=== PATIENT | male | born 1960 | race American Indian/Alaskan Native ===

== ENCOUNTER 2017-11-07 13:52 | Emergency (ER) | payer OTHER ==
[2017-11-07 14:15] VITALS: RESP 18; TEMP 98.4
--- NOTE | 2017-11-07 14:39 | ED PDOC ---
Arrival/HPI - General Chief Complaint: Medical Clearance Time Seen by Provider: 11/07/17 14:12 Historian: Patient - History of Present Illness Narrative History of Present Illness (Text): 11/07/17 14:33 A 57 year old male brought into the emergency department by EMS for possible carbon monoxide poisoning. Patient reports the CO monitor went off early this morning. He ignored it believing it was just a battery malfunction. Patient later smelt gas and the fire department was called. They instructed the patient to evacuate the building and come in to the emergency room for further evaluation. Patient denies any pain or discomfort at this time. Patient denies any fever, chills, nausea, vomiting, abdominal pain, chest pain, shortness of breath, headache, dizziness or any other complaints. Time/Duration: Prior to Arrival Context: Home Past Medical History - Provider Review Nursing Documentation Reviewed: Yes - Infectious Disease Hx of Infectious Diseases: None - Psychiatric Hx Substance Use: No - Anesthesia Hx Anesthesia: No Family/Social History - Physician Review Nursing Documentation Reviewed: Yes Family/Social History: No Known Family HX Smoking Status: Never Smoked Hx Alcohol Use: Yes Frequency of alcohol use: Socially Hx Substance Use: No Allergies/Home Meds Allergies/Adverse Reactions: Allergies No Known Allergies Allergy (Verified 11/07/17 14:02) Home Medications: Home Meds Medication Instructions Recorded Confirmed No Known Home Med 11/07/17 11/07/17 Review of Systems - Physician Review All systems were reviewed & negative as marked: Yes - Review of Systems Constitutional: Normal. absent: Fevers, Night Sweats Respiratory: absent: Normal, SOB Cardiovascular: Normal. absent: Chest Pain Gastrointestinal: Normal. absent: Abdominal Pain, Nausea, Vomiting Neurological: Normal. absent: Headache, Dizziness Physical Exam Vital Signs Reviewed: Yes Vital Signs Temp Pulse Resp BP Pulse Ox 11/07/17 14:56 88 18 176/98 H 97 11/07/17 14:09 98.4 F 109 H 18 178/115 H 98 Temperature: Afebrile Blood Pressure: Hypertensive Pulse: Tachycardic Respiratory Rate: Normal Appearance: Positive for: Well-Appearing, Non-Toxic, Comfortable Pain Distress: None Mental Status: Positive for: Alert and Oriented X 3 - Systems Exam Head: Present: Atraumatic, Normocephalic Pupils: Present: PERRL Extroacular Muscles: Present: EOMI Conjunctiva: Present: Normal Mouth: Present: Moist Mucous Membranes Neck: Present: Normal Range of Motion Respiratory/Chest: Present: Clear to Auscultation, Good Air Exchange. No: Respiratory Distress, Accessory Muscle Use Cardiovascular: Present: Regular Rate and Rhythm, Normal S1, S2. No: Murmurs Abdomen: Present: Normal Bowel Sounds. No: Tenderness, Distention, Peritoneal Signs Back: Present: Normal Inspection Upper Extremity: Present: Normal Inspection. No: Cyanosis, Edema Lower Extremity: Present: Normal Inspection. No: Edema Neurological: Present: GCS=15, CN II-XII Intact, Speech Normal (Patient is speaking in full sentences without any difficulty) Skin: Present: Warm, Dry, Normal Color. No: Rashes Psychiatric: Present: Alert, Oriented x 3, Normal Insight, Normal Concentration Medical Decision Making ED Course and Treatment: 11/07/17 14:33 Impression: A 57 year old male with possible CO poisoning. Patient denies any complaints at this time. Plan: -- VBG -- Reassess and disposition Progress Notes: Patient reports he has a place to stay in until his apartment is cleared by the fire department. 11/07/17 15:20 On re-evaluation, patient is comfortable. He continues to deny any complaints. Patient is acting and speaking normally. - Lab Interpretations Lab Results: Lab Results 11/07/17 14:45: pO2 62 H, ABG Carboxyhemoglobin 12.4 H, POC ABG HHb (Measured) 3.4, ABG Methemoglobin 1.2, VBG pH 7.42, VBG pCO2 48.0, VBG HCO3 31.1 H, VBG O2 Sat (Calc) 96.1 H, VBG Base Excess 5.4 H, VBG Hgb O2 Saturation 83.0 L, Hemoglobin 15.3 I have reviewed the lab results: Yes - Scribe Statement The provider has reviewed the documentation as recorded by the Codyibbonnie Roa Provider Scribe Attestation: All medical record entries made by the Scribe were at my direction and personally dictated by me. I have reviewed the chart and agree that the record accurately reflects my personal performance of the history, physical exam, medical decision making, and the department course for this patient. I have also personally directed, reviewed, and agree with the discharge instructions and disposition. Disposition/Present on Arrival - Present on Arrival Any Indicators Present on Arrival: No History of DVT/PE: No History of Uncontrolled Diabetes: No Urinary Catheter: No History of Decub. Ulcer: No History Surgical Site Infection Following: None - Disposition Have Diagnosis and Disposition been Completed?: Yes Diagnosis: Carbon monoxide exposure Disposition: HOME/ ROUTINE Disposition Time: 15:00 Condition: GOOD Discharge Instructions (ExitCare): Carbon Monoxide Poisoning (ED) Additional Instructions: Thank you for letting us take care of you today. The emergency medical care you received today was directed at your acute symptoms. If you were prescribed any medication, please fill it and take as directed. It may take several days for your symptoms to resolve. Return to the Emergency Department if your symptoms worsen, do not improve, or if you have any other problems. Please contact your doctor or call one of the physicians/clinics you have been referred to that are listed on the Patient Visit Information form that is included in your discharge packet. Bring any paperwork you were given at discharge with you along with any medications you are taking to your follow up visit. Our treatment cannot replace ongoing medical care by a primary care provider (PCP) outside of the emergency department. Thank you for allowing the [facility] team to be part of your care today. DO NOT ENTER YOUR RESIDENCE UNTIL THE FIRE DEPARTMENT TELLS YOU IT IS SAFE. Follow up with your doctor for any concerns. Referrals: [facility] Pam Alvarez, [Non-Staff] - Follow up with primary Forms: [facility] SITE (Spanish)
[2017-11-07 14:54] LABS: VENOUS BLOOD GAS BASE EXCESS 5.4 mmol/L (0.0-2.0); VENOUS BLOOD GAS PO2 62 mm/Hg (30-55); VENOUS BLOOD PH 7.42 (7.32-7.43)
[2017-11-07 14:56] VITALS: PULSE 88; O2SAT 97
[2017-11-07 14:57] VITALS: BP 176/98
== END 2017-11-07 15:41 | disposition home or self-care (01) ==
LOC: MERGE 13:52 → ED 13:52
DX: T58.8X1A Toxic effect of carbon monoxide from other source, accidental (unintentional), initial encounter (principal); Y92.009 Unspecified place in unspecified non-institutional (private) residence as the place of occurrence of the external cause